=== PATIENT | female | born 1960 | race Hispanic/Latino ===

== ENCOUNTER 2020-08-24 10:53 | Inpatient (IN) | payer BC ==
[2020-08-22 08:57] LABS: BASOPHILS # (AUTO) 0.1 (0.0-0.1); BASOPHILS % 0.9 % (0.0-1.0); EOSINOPHILS # (AUTO) 0.5 (0.0-0.4); EOSINOPHILS % 8.4 % (0.0-6.0); HEMATOCRIT 30.4 % (34.2-44.1); HEMOGLOBIN 9.3 g/dL (12.0-16.0); LYMPHOCYTES # (AUTO) 1.2 (1.0-3.2); LYMPHOCYTES % 20.1 % (18.0-39.1); MEAN CORPUSCULAR HGB CONC 30.6 g/dL (31-35); MEAN CORPUSCULAR VOLUME 88.1 fL (81-99); MONOCYTES # (AUTO) 0.5 (0.2-0.8); MONOCYTES % 8.6 % (4.4-11.3); NEUTROPHILS # (AUTO) 3.6 (2.1-6.9); NEUTROPHILS % 61.7 % (38.7-80.0); PLATELET COUNT 143 x10e3/uL (140-360); RED BLOOD COUNT 3.45 x10e6/uL (3.6-5.1); RED CELL DISTRIBUTION WIDTH 13.7 % (11.7-14.4)
[2020-08-22 09:24] LABS: INR 1.01; PROTHROMBIN TIME 13.9 seconds (11.9-14.5)
[2020-08-22 09:25] LABS: PARTIAL THROMBOPLASTIN TIME 29.7 seconds (23.8-35.5)
[~2020-08-24 10:53] MED LIST: ATORVASTATIN CA20 MG PO; CARVEDILOL12.5 MG PO; FEROSUL325 MG PO; HUMALOG MI100 UNIT/2 SQ; ISOSORBIDE DINI20 MG PO; MELATONIN3 MG PO; MIRTAZAPINE7.5 MG PO; NEURONTIN300 MG PO; NIFEDIPINE10 MG PO; OMEPRAZOLE40 MG PO; RENVELA0.8 GM PO; SENNA LAX8.6 MG PO; TERAZOSIN HCL1 MG PO
[2020-08-24] MEDS ORDERED: SODIUM CHLORIDE 0.9% 500ML 500 ML ONE ×2 (11:42→12:42)
[2020-08-24] MEDS ORDERED: VANCOMYCIN 1GM/NS 250 ML 250 ML ONE (11:42)
[2020-08-24 12:34] LABS: INR 1.08; PARTIAL THROMBOPLASTIN TIME 29.5 seconds (23.8-35.5); PROTHROMBIN TIME 14.6 seconds (11.9-14.5)
[2020-08-24 12:38] LABS: ANION GAP 15.6 mmol/L (8-16); CALCIUM 8.2 mg/dL (8.4-10.2); CREATININE, SERUM 3.87 mg/dL (0.57-1.11)
[2020-08-24] MEDS ORDERED: THROMBIN FOR SOLN 5,000 UNIT VIAL ONE ×2 (12:40→12:41)
[2020-08-24] MEDS ORDERED: HEPARIN SOD (PORCINE) 5,000 UNIT/ML VIAL ONE (12:40)
[2020-08-24] MEDS ORDERED: BUPIVACAINE HCL 0.5% INJ 30 ML VIAL INJ ONE (12:40)
[2020-08-24 12:41] LABS: POTASSIUM 5.6 mmol/L (3.5-5.1)
[2020-08-24] MEDS ORDERED: PROTAMINE SULFATE 10 MG/ML 5 ML VIAL ONE (12:42)
[2020-08-24] MEDS ORDERED: HEPARIN SOD (PORCINE) 1000 UNIT/ML 30ML ONE (12:42)
[2020-08-24] MEDS ORDERED: POVIDONE IODINE 0.05% 0.05 % ML PO ONE (13:16)
[2020-08-24] MEDS ORDERED: ONDANSETRON HCL INJ 2MG/ML 2ML 2 MG/ML VIAL ONE (13:16)
[2020-08-24] MEDS ORDERED: DEXAMETHASONE SOD PHOS INJ 4 MG/ML VIAL ONE (13:16)
[2020-08-24] MEDS ORDERED: LIDOCAINE 2%/ EPINEPHRINE 20ML MDV ONE (13:37)
[2020-08-24] MEDS ORDERED: ROPIVACAINE 0.5% 5 MG/ML 30 ML SDV ONE (13:37)
[2020-08-24] MEDS ORDERED: FENTANYL CITRATE/PF 100MCG/2 ML INJ ONE (13:45)
[2020-08-24] MEDS ORDERED: MIDAZOLAM HCL 2 MG/2 ML VIAL ONE (13:45)
[2020-08-24] MEDS ORDERED: DEXTROSE 50% SYRINGE 50 ML IV ONE (15:32)
[2020-08-24] MEDS ORDERED: INSULIN REGULAR, HUMAN 100 UNIT/1 ML 3ML VIAL ONE (15:32)
[2020-08-24] MEDS ORDERED: CALCIUM GLUCONATE 10% INJ 4.65 MEQ in SODIUM CHLORIDE 0.9% 50ML 50 ML IV ONE (16:45)
[2020-08-24 16:55] LABS: ALBUMIN/GLOBULIN RATIO 0.7 (0.8-2.0); ANION GAP 15.2 mmol/L (8-16); CALCIUM 7.6 mg/dL (8.4-10.2); CREATININE, SERUM 4.04 mg/dL (0.57-1.11); POTASSIUM 5.2 mmol/L (3.5-5.1)
[2020-08-24] MEDS ORDERED: SODIUM CHLORIDE 0.9% 1000ML 1,000 ML ONE (17:58)
[2020-08-24] MEDS ORDERED: HEPARIN SOD (PORCINE) 1000 UNIT/ML SDV IV PRN (18:15)
[2020-08-24] MEDS ORDERED: SODIUM CHLORIDE 0.9% 250ML 500 ML IV PRN (18:15)
[2020-08-24] MEDS ORDERED: SODIUM CHLORIDE 0.9% 1000ML 2,000 ML IV PRN (18:15)
[2020-08-24 20:00] VITALS: BP 141/64
[2020-08-24] MEDS ORDERED: DEXTROSE 50% SYRINGE 50 ML IV PRN (20:45)
[2020-08-24 20:57] VITALS: BP 141/64
[2020-08-24] MEDS ORDERED: MELATONIN 3 MG TAB PO SCH (21:00)
[2020-08-24] MEDS ORDERED: ACETAMINOPHEN 325 MG TAB PO PRN (21:00)
[2020-08-24] MEDS ORDERED: ONDANSETRON HCL INJ 2MG/ML 2ML 2 MG/ML VIAL IV PRN (21:00)
[2020-08-24] MEDS ORDERED: MIRTAZAPINE 15 MG TAB PO SCH (21:00)
[2020-08-24] MEDS ORDERED: HYDRALAZINE HCL 20 MG/ML VIAL IV PRN (21:00)
[2020-08-24] MEDS ORDERED: ATORVASTATIN 20 MG TAB PO SCH (21:00)
[2020-08-24 21:10] VITALS: BP 141/64
[2020-08-24] MEDS: ISOSORBIDE DINITRATE 20 MG TAB PO SCH (21:27)
[2020-08-24] MEDS: INSULIN REGULAR, HUMAN 100 UNIT/1 ML 3ML VIAL SQ SCH (21:31)
[2020-08-25] VITALS: BP 163/66
[2020-08-25 04:00] VITALS: BP 162/70
[2020-08-25 05:52] LABS: BASOPHILS # (AUTO) 0.1 (0.0-0.1); BASOPHILS % 0.6 % (0.0-1.0); EOSINOPHILS % 0.3 % (0.0-6.0); HEMATOCRIT 28.3 % (34.2-44.1); LYMPHOCYTES # (AUTO) 0.6 (1.0-3.2); LYMPHOCYTES % 6.9 % (18.0-39.1); MEAN CORPUSCULAR HEMOGLOBIN 27.5 pg (28-32); MEAN CORPUSCULAR HGB CONC 31.8 g/dL (31-35); MEAN CORPUSCULAR VOLUME 86.5 fL (81-99); MONOCYTES # (AUTO) 0.5 (0.2-0.8); MONOCYTES % 6.3 % (4.4-11.3); NEUTROPHILS # (AUTO) 6.8 (2.1-6.9); NEUTROPHILS % 85.6 % (38.7-80.0); PLATELET COUNT 159 x10e3/uL (140-360); RED BLOOD COUNT 3.27 x10e6/uL (3.6-5.1); RED CELL DISTRIBUTION WIDTH 13.5 % (11.7-14.4)
[2020-08-25 06:14] LABS: ANION GAP 15.1 mmol/L (8-16); CALCIUM 8.3 mg/dL (8.4-10.2); CREATININE, SERUM 3.17 mg/dL (0.57-1.11); POTASSIUM 5.1 mmol/L (3.5-5.1)
[2020-08-25] MEDS: INSULIN REGULAR, HUMAN 100 UNIT/1 ML 3ML VIAL SQ SCH ×2 (07:30→13:35)
[2020-08-25] MEDS: INS LISP PRO/LISP HUMAN 75/25 100 UNITS/ML VIAL SC SCH ×2 (08:00→13:36)
[2020-08-25 08:03] VITALS: BP 170/69
[2020-08-25 09:00] VITALS: BP 170/69
[2020-08-25] MEDS ORDERED: CARVEDILOL 12.5 MG TAB PO SCH (09:00)
[2020-08-25] MEDS ORDERED: FERROUS SULFATE 325 MG TAB PO SCH (09:00)
[2020-08-25] MEDS ORDERED: GABAPENTIN 300 MG CAP PO SCH (09:00)
[2020-08-25] MEDS: SEVELAMER CARBONATE 800 MG TAB PO SCH ×2 (09:00→13:35)
[2020-08-25] MEDS ORDERED: SENNOSIDES 8.6 MG TAB PO SCH (09:00)
[2020-08-25] MEDS ORDERED: TERAZOSIN HCL 1 MG CAP PO SCH (09:00)
[2020-08-25] MEDS ORDERED: PANTOPRAZOLE SOD 40 MG TABEC PO SCH (09:00)
[2020-08-25] MEDS: ISOSORBIDE DINITRATE 20 MG TAB PO SCH ×2 (09:01→16:30)
[2020-08-25] MEDS ORDERED: HEPARIN SOD (PORCINE) 1000 UNIT/ML SDV IV PRN (12:15)
[2020-08-25] MEDS ORDERED: SODIUM CHLORIDE 0.9% 1000ML 2,000 ML IV PRN (12:15)
[2020-08-25] MEDS ORDERED: ALBUMIN 25% 12.5GM 0.25 GM/ML BTL IV PRN (12:15)
[2020-08-25] MEDS ORDERED: SODIUM CHLORIDE 0.9% 250ML 500 ML IV PRN (12:15)
[2020-08-25 12:47] VITALS: BP 167/69
[2020-08-25 15:44] VITALS: BP 180/65
[2020-08-25] MEDS ORDERED: NIFEDIPINE CR 30 MG TAB PO SCH (17:00)
== END 2020-08-25 17:53 | disposition home or self-care (01) | DRG 628 ==
LOC: OR 10:53 → PACU V 16:19 → MED/SURG2 17:31
PROVIDERS: ADMIT Internal Medicine; ATTEND Internal Medicine
PROC: 5A1D70Z Performance of Urinary Filtration, Intermittent, Less than 6 Hours Per Day (ICD-10-PCS; 2020-08-24)
PROC: 03180ZD Bypass Left Brachial Artery to Upper Arm Vein, Open Approach (ICD-10-PCS; principal; 2020-08-24 13:26)
PROC: 5A1D70Z Performance of Urinary Filtration, Intermittent, Less than 6 Hours Per Day (ICD-10-PCS; 2020-08-25)
DX: E87.5 Hyperkalemia (principal); N18.6 End stage renal disease; I12.0 Hypertensive chronic kidney disease with stage 5 chronic kidney disease or end stage renal disease; Z49.01 Encounter for fitting and adjustment of extracorporeal dialysis catheter; E11.22 Type 2 diabetes mellitus with diabetic chronic kidney disease; E78.00 Pure hypercholesterolemia, unspecified; D64.9 Anemia, unspecified; E11.21 Type 2 diabetes mellitus with diabetic nephropathy; E11.42 Type 2 diabetes mellitus with diabetic polyneuropathy; Z79.4 Long term (current) use of insulin; Z90.49 Acquired absence of other specified parts of digestive tract; Z83.3 Family history of diabetes mellitus; Z82.49 Family history of ischemic heart disease and other diseases of the circulatory system; Z86.16 Personal history of COVID-19
CPT/HCPCS: 36415; 80048; 80053; 82948; 85025; 85610; 85730; 86705; 86706; 87340; 93005; C1713; J0610; J1100; J1644; J1815; J1817; J2001; J2250; J2405; J2720; J2795; J3010; J3370; J7030; J7040; J7799; U0002